=== PATIENT | male | born 1960 | race Caucasian/White ===

== ENCOUNTER 2017-02-02 11:14 | Emergency (ER) | payer MEDICAID ==
[~2017-02-02] VITALS: Ht 175.3 cm; Wt 114.1 kg
[~2017-02-02 11:14] MED LIST: APIX5TAB PO; INSU100I18 SQ-INSULIN; INSU100I28 SQ-INSULIN
[2017-02-02 11:27] VITALS: BP 135/87
[2017-02-02] MEDS ORDERED: ALBUTEROL/IPRATROPIUM 2.5MG/0.5MG, 3 ML ONE (11:58)
[2017-02-02] MEDS ORDERED: ALBUTEROL SULFATE 2.5 MG/3 ML NPPB ONE (12:00)
== END 2017-02-02 12:32 | disposition home or self-care (01) ==
LOC: ED 12:26
DX: J20.9 Acute bronchitis, unspecified (principal)
CPT/HCPCS: 71020; 93005; 94640; 99284; J7613

== ENCOUNTER 2018-01-31 17:20 | Inpatient (IN) | payer MEDICAID, OTHER ==
[~2018-01-31] VITALS: Ht 175.3 cm; Wt 122.5 kg
[2018-01-31 18:25] LABS: MEAN CORPUSCULAR HEMOGLOBIN 27.5 pg (27.5-34.5); MEAN CORPUSCULAR HGB CONC 33.1 g/dL (33.2-36.2); MEAN CORPUSCULAR VOLUME 83.1 fL (81-97); MEAN PLATELET VOLUME 8.6 fL (7.4-10.4); PLATELET COUNT 325 x10^3/uL (130-400); RED BLOOD COUNT 4.46 x10^6/uL (4.38-5.82)
[2018-01-31 18:30] LABS: MD YES
[2018-01-31] MEDS ORDERED: SODIUM CHLORIDE 0.9% 1,000ML IVBOLUS ONE (18:30)
[2018-01-31] MEDS ORDERED: ONDANSETRON 2MG/ML, 2ML IVPush ONE (18:30)
[2018-01-31] MEDS ORDERED: ONDANSETRON 2MG/ML, 2ML ONE (18:32)
[2018-01-31 18:38] LABS: ALANINE AMINOTRANSFERASE 60 U/L (12-78); ALBUMIN 2.6 g/dL (3.4-5.0); ANION GAP 20 mmol/L (5-15); CALCIUM 8.2 mg/dL (8.5-10.1); CHLORIDE 95 mmol/L (98-107); CREATININE 9.61 mg/dL (0.7-1.3)
[2018-01-31 18:42] LABS: ALKALINE PHOSPHATASE 104 U/L (45-117); BILIRUBIN,TOTAL 0.5 mg/dL (0.2-1.0); TOTAL PROTEIN 7.4 g/dL (6.4-8.2); TROPONIN I < 0.015 ng/mL (0.000-0.045)
[2018-01-31 18:55] LABS: BASOS#(MANUAL) 0.19 x10^3/uL (0-0.1); BASOS% (MANUAL) 1 % (0-1); LYMPH#(MANUAL) 2.09 x10^3/uL (1-3.4); LYMPHS% (MANUAL) 11 % (22-44); MONOS#(MANUAL) 1.33 x10^3/uL (0.3-2.7); MONOS% (MANUAL) 7 % (2-9); SEG#(MANUAL) 15.39 x10^3/uL (1.8-6.8); SEGS% (MANUAL) 81 % (42-75)
[2018-01-31 18:57] LABS: <PLATELET ESTIMATE> ADEQUATE; <PLT MORPHOLOGY> NORMAL PLT MORPH; ANISOCYTOSIS 1+; ROULEAUX 1+
[2018-01-31] MEDS ORDERED: LISI2.5T PO (19:49)
[2018-01-31] MEDS ORDERED: ATOR10TA9 PO ×2 (19:51→19:53)
[2018-01-31] MEDS ORDERED: METF500T17 PO ×3 (19:51→19:53)
[2018-01-31] MEDS ORDERED: ASPI-515 PO (19:53)
[2018-01-31] MEDS ORDERED: LISI-170 PO (19:53)
[2018-01-31] MEDS ORDERED: hydrALAzine 20 MG/ML, 1ML IVPush PRN (20:00)
[2018-01-31] MEDS ORDERED: morphine SULFATE 10 MG/ML, 1ML IVPush PRN (20:00)
[2018-01-31] MEDS ORDERED: BISACODYL 10 MG SUPP PR PRN (20:00)
[2018-01-31] MEDS ORDERED: ACETAMINOPHEN 325 MG TABLET PO PRN (20:00)
[2018-01-31] MEDS ORDERED: PROMETHAZINE 25 MG/ML, 1ML IM PRN (20:00)
[2018-01-31] MEDS ORDERED: LABETALOL 5MG/ML, 20ML IVPush PRN (20:00)
[2018-01-31] MEDS ORDERED: DOCUSATE 100 MG CAPSULE PO PRN (20:00)
[2018-01-31] MEDS ORDERED: ONDANSETRON ODT 4 MG PO PRN (20:00)
[2018-01-31] MEDS ORDERED: ONDANSETRON 2MG/ML, 2ML IVPush PRN (20:00)
[2018-01-31] MEDS ORDERED: OXYcodone IR 5MG TABLET PO PRN (20:00)
[2018-01-31] MEDS ORDERED: POLYETHYLENE GLYCOL 17 GM PACKET PO PRN (20:00)
[2018-01-31 20:22] LABS: MICROSCOPIC INDICATED
[2018-01-31 20:30] LABS: CULTURE INDICATED? NO
[2018-01-31 20:48] LABS: FREE T4 (FREE THYROXINE) 1.33 ng/dL (0.76-1.46); THYROID STIMULATING HORMONE 0.521 mIU/L (0.358-3.740)
[2018-01-31 20:50] LABS: HEMOGLOBIN A1C 6.9 % (4.2-6.3)
[2018-01-31] MEDS: ATORVASTATIN 10 MG TABLET PO SCH (21:06)
[2018-01-31] MEDS: SODIUM CHLORIDE 0.9% 1,000 ML IV SCH (21:07)
[2018-01-31] MEDS: HEPARIN 5,000 UNITS/ML, 1ML SQ SCH (21:07)
[2018-01-31] MEDS: INSULIN LISPRO 100 UNITS/ML, PEN SQ-INSULIN SCH (21:33)
[2018-01-31 21:38] VITALS: BP 93/58
[2018-02-01] VITALS (9 sets, daily range): BP systolic 95–123; BP diastolic 47–78
[2018-02-01] MEDS: HEPARIN 5,000 UNITS/ML, 1ML SQ SCH ×3 (04:14→20:27)
[2018-02-01] MEDS: SODIUM CHLORIDE 0.9% 1,000 ML IV SCH (04:14)
[2018-02-01 04:42] LABS: CHLORIDE,URINE RANDOM 14 mmol/L; POTASSIUM,URINE RANDOM 18 mmol/L; SODIUM,URINE RANDOM 46 mmol/L
[2018-02-01 05:27] LABS: CHLORIDE 99 mmol/L (98-107)
[2018-02-01 05:33] LABS: ALANINE AMINOTRANSFERASE 53 U/L (12-78); ALBUMIN 2.3 g/dL (3.4-5.0); ALKALINE PHOSPHATASE 95 U/L (45-117); ANION GAP 19 mmol/L (5-15); BASOPHILS # (AUTO) 0.17 x10^3/uL (0-0.1); BASOPHILS % (AUTO) 1 % (0-1); BILIRUBIN,TOTAL 0.4 mg/dL (0.2-1.0); CALCIUM 8.5 mg/dL (8.5-10.1); CHOL/HDL RATIO 4.1; CHOLESTEROL, TOTAL 91 mg/dL (140-239); CREATININE 7.93 mg/dL (0.7-1.3); EOSINOPHILS # (AUTO) 0.02 x10^3/uL (0-0.4); EOSINOPHILS % (AUTO) 0 % (1-7); HDL CHOL % 24 % (26-37); HDL CHOLESTEROL (DIRECT) 22 mg/dL (40-60); LDL CHOLESTEROL,CALCULATED 45 mg/dL (54-169); LYMPHOCYTES # (AUTO) 1.41 x10^3/uL (1-3.4); LYMPHOCYTES % (AUTO) 10 % (22-44); MD NO; MEAN CORPUSCULAR HEMOGLOBIN 27.3 pg (27.5-34.5); MEAN CORPUSCULAR HGB CONC 33.3 g/dL (33.2-36.2); MEAN CORPUSCULAR VOLUME 82.1 fL (81-97); MEAN PLATELET VOLUME 8.9 fL (7.4-10.4); MONOCYTES % (AUTO) 8 % (2-9); NEUTROPHILS # (AUTO) 11.78 x10^3/uL (1.8-6.8); NEUTROPHILS % (AUTO) 81 % (42-75); PLATELET COUNT 263 x10^3/uL (130-400); RED BLOOD COUNT 4.14 x10^6/uL (4.38-5.82); RED CELL DISTRIBUTION WIDTH 14.6 % (9.4-14.8); TOTAL PROTEIN 6.7 g/dL (6.4-8.2); TRIGLYCERIDES 122 mg/dL (50-200); VLDL CHOLESTEROL 24 mg/dL (0-25)
[2018-02-01] MEDS: INSULIN LISPRO 100 UNITS/ML, PEN SQ-INSULIN SCH ×4 (07:53→20:57)
[2018-02-01] MEDS: ASPIRIN 81 MG TABLET EC PO SCH (07:53)
[2018-02-01] MEDS ORDERED: D5%-0.45% NACL 1,000 ML IV SCH (08:00)
[2018-02-01] MEDS: D5 IV SCH ×2 (14:35→21:18)
[2018-02-01] MEDS: SODIUM BICARB 8.4% IV SCH ×2 (14:35→21:18)
[2018-02-01] MEDS: NACL IV SCH ×2 (14:35→21:18)
[2018-02-01] MEDS: ATORVASTATIN 10 MG TABLET PO SCH (20:27)
[2018-02-02 01:30] VITALS: BP 124/67
[2018-02-02 01:32] VITALS: BP_SYST 119; BP_SYST 132; BP_DIAS 74; BP_DIAS 76
[2018-02-02] MEDS: HEPARIN 5,000 UNITS/ML, 1ML SQ SCH ×3 (04:39→20:06)
[2018-02-02] MEDS: SODIUM BICARB 8.4% IV SCH ×3 (04:39→23:02)
[2018-02-02] MEDS: NACL IV SCH ×3 (04:39→23:02)
[2018-02-02] MEDS: D5 IV SCH ×3 (04:39→23:02)
[2018-02-02 05:25] LABS: BASOPHILS # (AUTO) 0.03 x10^3/uL (0-0.1); BASOPHILS % (AUTO) 0 % (0-1); EOSINOPHILS # (AUTO) 0.07 x10^3/uL (0-0.4); EOSINOPHILS % (AUTO) 1 % (1-7); LYMPHOCYTES # (AUTO) 1.31 x10^3/uL (1-3.4); LYMPHOCYTES % (AUTO) 12 % (22-44); MD NO; MEAN CORPUSCULAR HEMOGLOBIN 27.2 pg (27.5-34.5); MEAN CORPUSCULAR HGB CONC 32.9 g/dL (33.2-36.2); MEAN CORPUSCULAR VOLUME 82.8 fL (81-97); MEAN PLATELET VOLUME 8.7 fL (7.4-10.4); MONOCYTES # (AUTO) 1.01 x10^3/uL (0.2-0.8); MONOCYTES % (AUTO) 10 % (2-9); NEUTROPHILS # (AUTO) 8.12 x10^3/uL (1.8-6.8); NEUTROPHILS % (AUTO) 77 % (42-75); PLATELET COUNT 305 x10^3/uL (130-400); RED BLOOD COUNT 4.28 x10^6/uL (4.38-5.82); RED CELL DISTRIBUTION WIDTH 14.4 % (9.4-14.8)
[2018-02-02 05:32] LABS: CALCIUM 8.4 mg/dL (8.5-10.1); CHLORIDE 106 mmol/L (98-107)
[2018-02-02 05:35] LABS: ANION GAP 10 mmol/L (5-15); CREATINE KINASE, TOTAL 451 U/L (39-308); CREATININE 2.16 mg/dL (0.7-1.3)
[2018-02-02 07:07] VITALS: BP 123/84
[2018-02-02] MEDS: INSULIN LISPRO 100 UNITS/ML, PEN SQ-INSULIN SCH ×4 (07:30→20:06)
[2018-02-02] MEDS: ASPIRIN 81 MG TABLET EC PO SCH (07:53)
[2018-02-02] MEDS ORDERED: SODIUM BICARB 8.4% IV SCH (08:00)
[2018-02-02] MEDS ORDERED: NACL IV SCH (08:00)
[2018-02-02] MEDS ORDERED: D5 IV SCH (08:00)
[2018-02-02 12:17] VITALS: BP 130/77
[2018-02-02 19:47] VITALS: BP 149/90
[2018-02-02] MEDS: ATORVASTATIN 10 MG TABLET PO SCH (20:06)
[2018-02-03 01:51] VITALS: BP 137/92
[2018-02-03] MEDS: HEPARIN 5,000 UNITS/ML, 1ML SQ SCH ×2 (04:10→12:00)
[2018-02-03 05:25] LABS: BASOPHILS # (AUTO) 0.04 x10^3/uL (0-0.1); BASOPHILS % (AUTO) 0 % (0-1); EOSINOPHILS % (AUTO) 1 % (1-7); LYMPHOCYTES # (AUTO) 1.83 x10^3/uL (1-3.4); LYMPHOCYTES % (AUTO) 18 % (22-44); MD NO; MEAN CORPUSCULAR HEMOGLOBIN 27.3 pg (27.5-34.5); MEAN CORPUSCULAR HGB CONC 32.9 g/dL (33.2-36.2); MEAN CORPUSCULAR VOLUME 82.9 fL (81-97); MEAN PLATELET VOLUME 8.4 fL (7.4-10.4); MONOCYTES # (AUTO) 1.11 x10^3/uL (0.2-0.8); MONOCYTES % (AUTO) 11 % (2-9); NEUTROPHILS # (AUTO) 7.02 x10^3/uL (1.8-6.8); NEUTROPHILS % (AUTO) 70 % (42-75); PLATELET COUNT 309 x10^3/uL (130-400); RED BLOOD COUNT 4.13 x10^6/uL (4.38-5.82); RED CELL DISTRIBUTION WIDTH 14.6 % (9.4-14.8)
[2018-02-03 05:43] LABS: ANION GAP 7 mmol/L (5-15); CALCIUM 8.1 mg/dL (8.5-10.1); CHLORIDE 105 mmol/L (98-107)
[2018-02-03 05:44] LABS: CREATININE 0.95 mg/dL (0.7-1.3)
[2018-02-03] MEDS: NACL IV SCH ×2 (05:49→13:10)
[2018-02-03] MEDS: SODIUM BICARB 8.4% IV SCH ×2 (05:49→13:10)
[2018-02-03] MEDS: D5 IV SCH ×2 (05:49→13:10)
[2018-02-03 06:35] VITALS: BP 153/87
[2018-02-03] MEDS: INSULIN LISPRO 100 UNITS/ML, PEN SQ-INSULIN SCH ×2 (08:11→11:41)
[2018-02-03] MEDS: ASPIRIN 81 MG TABLET EC PO SCH (09:07)
[2018-02-03 12:25] VITALS: BP 136/89
== END 2018-02-03 14:10 | disposition home or self-care (01) | DRG 438 ==
LOC: ED 19:47 → EDIP 19:48 → 4EST 20:54
PROVIDERS: ADMIT Internal Medicine; ATTEND Internal Medicine
PROC: 0T9B70Z Drainage of Bladder with Drainage Device, Via Natural or Artificial Opening (ICD-10-PCS; principal; 2018-01-31)
DX: K85.90 Acute pancreatitis without necrosis or infection, unspecified (principal); N17.0 Acute kidney failure with tubular necrosis; E44.0 Moderate protein-calorie malnutrition; E87.2 Acidosis; I11.9 Hypertensive heart disease without heart failure; L40.9 Psoriasis, unspecified; E11.9 Type 2 diabetes mellitus without complications; E78.5 Hyperlipidemia, unspecified; E86.0 Dehydration; Z87.828 Personal history of other (healed) physical injury and trauma; Z86.718 Personal history of other venous thrombosis and embolism; Z86.14 Personal history of Methicillin resistant Staphylococcus aureus infection; Z79.899 Other long term (current) drug therapy; Z79.82 Long term (current) use of aspirin; Z68.39 Body mass index [BMI] 39.0-39.9, adult
CPT/HCPCS: 36415; 70450; 71045; 76770; 80048; 80053; 80061; 81001; 82436; 82550; 82553; 82962; 83036; 83605; 83690; 83735; 84133; 84300; 84439; 84443; 84484; 85025; 87040; 90656; 93005; 96361; 96374; 99285; G0378; J1644; J2405; J1815; J7030

== ENCOUNTER 2018-05-09 14:17 | Inpatient (IN) | payer MEDICAID ==
[~2018-05-09] VITALS: Ht 175.3 cm; Wt 123.8 kg
[~2018-05-09 14:17] MED LIST changes: +ASPI-515 PO; +ATOR10TA9 PO; +LISI-170 PO; +LISI2.5T PO; +METF500T17 PO
[2018-05-09] MEDS ORDERED: ALBUTEROL/IPRATROPIUM 2.5MG/0.5MG, 3 ML ONE (14:28)
[2018-05-09] MEDS ORDERED: methylPREDNISolone SOD SUCC 125 MG/2 ML IVP ONE (14:30)
[2018-05-09] MEDS ORDERED: SODIUM CHLORIDE FLUSH 10ML SYR IVF ONE (14:30)
[2018-05-09] MEDS: ALBUTEROL/IPRATROPIUM 2.5MG/0.5MG, 3 ML NPPB SCH (14:32)
--- NOTE | 2018-05-09 14:35 | NUR ---
pt bib remsa for shortness of breath x 2 days. pt received albuterol and 2 duoneb treatments in route. pt with hx: dm, htn, high cholesterol, and kidney problems. blood glucose per remsa was 130. pt placed in traume 3 and rt at bedside. pt placed on bipap. pt placed on bp, cardiac, and cont. pulse oximeter. assessment completed. ekg done and presented to md. 2 ivs started and unable to draw blood. lab at bedside. chest x-ray at bedside. daughter at bedside.
[2018-05-09] MEDS ORDERED: methylPREDNISolone SOD SUCC 125 MG/2 ML ONE (14:39)
--- NOTE | 2018-05-09 14:49 | NUR ---
LAB INTO DRAW ABG X 1.
--- NOTE | 2018-05-09 14:50 | NUR ---
Felicita page in [facility] - 05/09/18 at 1451 by KAMILA BIPAP 15/5-60%
--- NOTE | 2018-05-09 14:51 | NUR ---
BIPAP 15/8-60%
[2018-05-09] MEDS ORDERED: LISI-167 PO (14:57)
--- NOTE | 2018-05-09 14:59 | NUR ---
PT TAKEN OFF OF BIPAP AND CHANGED TO HIGH FLOW NASAL CANNULA.
[2018-05-09] MEDS ORDERED: ALBUTEROL SULFATE 2.5 MG/3 ML ONE (15:00)
[2018-05-09 15:08] LABS: BASOPHILS # (AUTO) 0.01 x10^3/uL (0-0.1); BASOPHILS % (AUTO) 0 % (0-1); EOSINOPHILS % (AUTO) 0 % (1-7); LYMPHOCYTES # (AUTO) 1.05 x10^3/uL (1-3.4); LYMPHOCYTES % (AUTO) 13 % (22-44); MD NO; MEAN CORPUSCULAR HEMOGLOBIN 24.9 pg (27.5-34.5); MEAN CORPUSCULAR HGB CONC 31.3 g/dL (33.2-36.2); MEAN CORPUSCULAR VOLUME 79.7 fL (81-97); MEAN PLATELET VOLUME 8.1 fL (7.4-10.4); MONOCYTES # (AUTO) 0.49 x10^3/uL (0.2-0.8); MONOCYTES % (AUTO) 6 % (2-9); NEUTROPHILS # (AUTO) 6.34 x10^3/uL (1.8-6.8); NEUTROPHILS % (AUTO) 80 % (42-75); PLATELET COUNT 291 x10^3/uL (130-400); RED BLOOD COUNT 4.14 x10^6/uL (4.38-5.82); RED CELL DISTRIBUTION WIDTH 16.4 % (9.4-14.8)
[2018-05-09 15:13] LABS: ALANINE AMINOTRANSFERASE 71 U/L (12-78); ALBUMIN 3.2 g/dL (3.4-5.0); CALCIUM 8.5 mg/dL (8.5-10.1); CHLORIDE 100 mmol/L (98-107); CREATININE 0.92 mg/dL (0.7-1.3)
[2018-05-09 15:17] LABS: ALKALINE PHOSPHATASE 125 U/L (45-117); BILIRUBIN,TOTAL 0.6 mg/dL (0.2-1.0); TOTAL PROTEIN 7.3 g/dL (6.4-8.2)
[2018-05-09] MEDS ORDERED: CEFTRIAXONE PMX 1GM/50ML 50 ML ONE (15:17)
--- NOTE | 2018-05-09 15:19 | NUR ---
BLOOD CULTURES DRAWN X 2 AND ANTIBIOTICS HUNG PER MD ORDER
[2018-05-09 15:22] LABS: ANION GAP 10 mmol/L (5-15)
[2018-05-09 15:23] LABS: TROPONIN I 0.295 ng/mL (0.000-0.045)
--- NOTE | 2018-05-09 15:24 | NUR ---
critical trop 0.295 called by lab. aware
--- NOTE | 2018-05-09 15:26 | NUR ---
TEMP 103 ORALLY. AWARE.
[2018-05-09] MEDS ORDERED: ACETAMINOPHEN 325 MG TABLET PO STA (15:28)
[2018-05-09] MEDS ORDERED: AZITHROMYCIN 500 MG in SODIUM CHLORIDE 0.9% 250 ML IV ONE (15:30)
[2018-05-09] MEDS ORDERED: ACETAMINOPHEN 500 MG TABLET PO ONE (15:30)
[2018-05-09] MEDS ORDERED: ACETAMINOPHEN 650 MG SUPP ONE (15:30)
[2018-05-09] MEDS ORDERED: CEFTRIAXONE PMX 1GM/50ML 50 ML IV ONE (15:30)
[2018-05-09] MEDS ORDERED: ACETAMINOPHEN 325 MG SUPP PR STA (15:31)
[2018-05-09 15:34] LABS: INTERNATIONAL NORMALIZED RATIO 1.1 (0.93-1.1); PROTHROMBIN TIME 11.6 Seconds (9.6-11.5)
--- NOTE | 2018-05-09 15:43 | NUR ---
TYLENOL RECTAL SUPPOSITORIES GIVEN PER MD ORDER.
[2018-05-09] MEDS ORDERED: OMNIPAQUE 350 MG/ML, 100ML BOTTLE ONE (16:00)
--- NOTE | 2018-05-09 16:36 | NUR ---
PT BACK FROM CT. PT MORE ALERT AND TALKING. A&OX4. PT PLACED BACK ON HIGH FLOW OXYGEN.
--- NOTE | 2018-05-09 16:44 | NUR ---
FLU SWABS SENT TO LAB.
[2018-05-09 17:04] LABS: RAPID INFLUENZA A Negative (Negative); RAPID INFLUENZA B Negative (Negative)
[2018-05-09] MEDS ORDERED: ACETAMINOPHEN 325 MG TABLET PO PRN (17:30)
[2018-05-09] MEDS ORDERED: POLYETHYLENE GLYCOL 17 GM PACKET PO PRN (17:30)
[2018-05-09] MEDS ORDERED: hydrALAzine 20 MG/ML, 1ML IVPush PRN (17:30)
[2018-05-09] MEDS: methylPREDNISolone SOD SUCC 125 MG/2 ML IVPush SCH (17:30)
[2018-05-09] MEDS ORDERED: BISACODYL 10 MG SUPP PR PRN (17:30)
[2018-05-09] MEDS ORDERED: ONDANSETRON 2MG/ML, 2ML IVPush PRN (17:30)
--- NOTE | 2018-05-09 17:30 | NUR ---
dr. wild at bedside.
[2018-05-09] MEDS: SODIUM CHLORIDE 0.9% 1,000 ML IV SCH (17:57)
[2018-05-09] MEDS ORDERED: ENOXAPARIN 40 MG/0.4 ML ONE (17:59)
[2018-05-09] MEDS: ENOXAPARIN 40 MG/0.4 ML SQ SCH (18:00)
--- NOTE | 2018-05-09 18:10 | NUR ---
us at bedside.
--- NOTE | 2018-05-09 18:16 | NUR ---
awaiting ccu bed.
--- NOTE | 2018-05-09 18:30 | NUR ---
lab into draw 2nd troponin and 3rd abg
[2018-05-09] MEDS: DOXYCYCLINE 100 MG in DEXTROSE 5% 250 ML IV SCH (18:33)
--- NOTE | 2018-05-09 18:35 | NUR ---
daughter almaz rolly [phone]
--- NOTE | 2018-05-09 18:45 | NUR ---
pt resting in bed at this time.
--- NOTE | 2018-05-09 18:59 | NUR ---
attempted to call report to [facility] and unavailable.
--- NOTE | 2018-05-09 19:21 | NUR ---
report given to therese jarvis.
[2018-05-09] MEDS: BUDESONIDE 0.5 MG/2 ML INHA INH SCH (21:00)
[2018-05-09] MEDS: FAMOTIDINE 20 MG/2 ML IVPush SCH (21:12)
[2018-05-10] MEDS: methylPREDNISolone SOD SUCC 125 MG/2 ML IVPush SCH ×4 (00:23→20:25)
[2018-05-10 00:52] VITALS: BP 128/84
[2018-05-10 01:40] LABS: TROPONIN I 0.134 ng/mL (0.000-0.045)
[2018-05-10 04:52] LABS: BASOPHILS # (AUTO) 0.01 x10^3/uL (0-0.1); BASOPHILS % (AUTO) 0 % (0-1); EOSINOPHILS % (AUTO) 0 % (1-7); LYMPHOCYTES # (AUTO) 0.57 x10^3/uL (1-3.4); LYMPHOCYTES % (AUTO) 10 % (22-44); MD NO; MEAN CORPUSCULAR HEMOGLOBIN 25.9 pg (27.5-34.5); MEAN CORPUSCULAR HGB CONC 32.4 g/dL (33.2-36.2); MONOCYTES # (AUTO) 0.15 x10^3/uL (0.2-0.8); MONOCYTES % (AUTO) 3 % (2-9); NEUTROPHILS # (AUTO) 5.13 x10^3/uL (1.8-6.8); NEUTROPHILS % (AUTO) 87 % (42-75); PLATELET COUNT 232 x10^3/uL (130-400); RED BLOOD COUNT 4.28 x10^6/uL (4.38-5.82); RED CELL DISTRIBUTION WIDTH 16.6 % (9.4-14.8)
[2018-05-10 05:02] LABS: ANION GAP 4 mmol/L (5-15); CHLORIDE 108 mmol/L (98-107)
[2018-05-10 05:06] LABS: ALANINE AMINOTRANSFERASE 66 U/L (12-78); ALKALINE PHOSPHATASE 108 U/L (45-117); BILIRUBIN,TOTAL 0.4 mg/dL (0.2-1.0); CREATININE 0.63 mg/dL (0.7-1.3); TOTAL PROTEIN 7.4 g/dL (6.4-8.2)
[2018-05-10] MEDS: SODIUM CHLORIDE 0.9% 1,000 ML IV SCH (05:38)
[2018-05-10] MEDS: DOXYCYCLINE 100 MG in DEXTROSE 5% 250 ML IV SCH ×2 (06:18→17:26)
[2018-05-10] MEDS: INSULIN LISPRO 100 UNITS/ML, PEN SQ-INSULIN SCH ×4 (07:00→20:55)
[2018-05-10] MEDS: BUDESONIDE 0.5 MG/2 ML INHA INH SCH ×2 (07:20→19:15)
[2018-05-10] MEDS ORDERED: LISINOPRIL 20 MG TABLET PO SCH (09:00)
[2018-05-10] MEDS: ASPIRIN 81 MG TABLET EC PO SCH (09:24)
[2018-05-10] MEDS: FAMOTIDINE 20 MG/2 ML IVPush SCH ×2 (09:28→20:24)
[2018-05-10] MEDS ORDERED: FUROSEMIDE 20 MG/2 ML IV ONE (12:00)
[2018-05-10] MEDS: CEFTRIAXONE PMX 2GM/50ML 50 ML IV SCH (12:07)
[2018-05-10] MEDS: LISINOPRIL 5 MG TABLET PO SCH (12:30)
[2018-05-10] MEDS ORDERED: LISINOPRIL 5 MG TABLET PO SCH (12:30)
[2018-05-10] MEDS: ENOXAPARIN 40 MG/0.4 ML SQ SCH (17:27)
[2018-05-10] MEDS: ATORVASTATIN 20 MG TABLET PO SCH (20:24)
[2018-05-11] MEDS: methylPREDNISolone SOD SUCC 125 MG/2 ML IVPush SCH ×3 (04:35→20:38)
[2018-05-11] MEDS: DOXYCYCLINE 100 MG in DEXTROSE 5% 250 ML IV SCH ×2 (04:56→18:21)
[2018-05-11] MEDS: BUDESONIDE 0.5 MG/2 ML INHA INH SCH ×2 (07:40→20:47)
[2018-05-11] MEDS: INSULIN LISPRO 100 UNITS/ML, PEN SQ-INSULIN SCH ×4 (08:07→21:11)
[2018-05-11] MEDS: ASPIRIN 81 MG TABLET EC PO SCH (08:07)
[2018-05-11] MEDS: FAMOTIDINE 20 MG/2 ML IVPush SCH (08:08)
[2018-05-11] MEDS: LISINOPRIL 5 MG TABLET PO SCH (08:08)
[2018-05-11] MEDS: CEFTRIAXONE PMX 2GM/50ML 50 ML IV SCH (12:53)
[2018-05-11] MEDS: ENOXAPARIN 40 MG/0.4 ML SQ SCH (18:01)
[2018-05-11 18:32] VITALS: BP 121/72
[2018-05-11] MEDS: FAMOTIDINE 20 MG TABLET PO SCH (20:38)
[2018-05-11] MEDS: ATORVASTATIN 20 MG TABLET PO SCH (20:38)
[2018-05-12 02:24] VITALS: BP 124/80
[2018-05-12] MEDS: methylPREDNISolone SOD SUCC 125 MG/2 ML IVPush SCH ×3 (04:33→20:48)
[2018-05-12] MEDS: DOXYCYCLINE 100 MG in DEXTROSE 5% 250 ML IV SCH ×2 (05:22→16:59)
[2018-05-12 07:15] VITALS: BP 126/87
[2018-05-12] MEDS: LISINOPRIL 5 MG TABLET PO SCH (08:54)
[2018-05-12] MEDS: INSULIN LISPRO 100 UNITS/ML, PEN SQ-INSULIN SCH ×4 (08:54→20:55)
[2018-05-12] MEDS: FAMOTIDINE 20 MG TABLET PO SCH ×2 (08:54→20:49)
[2018-05-12] MEDS: ASPIRIN 81 MG TABLET EC PO SCH (08:54)
[2018-05-12] MEDS: BUDESONIDE 0.5 MG/2 ML INHA INH SCH (09:00)
[2018-05-12] MEDS: CEFTRIAXONE PMX 2GM/50ML 50 ML IV SCH (11:52)
[2018-05-12 12:20] VITALS: BP 138/80
[2018-05-12] MEDS ORDERED: FUROSEMIDE 40 MG/4 ML IV ONE (17:00)
[2018-05-12] MEDS: ENOXAPARIN 40 MG/0.4 ML SQ SCH (17:00)
[2018-05-12 18:42] VITALS: BP 133/80
[2018-05-12] MEDS: ATORVASTATIN 20 MG TABLET PO SCH (20:49)
[2018-05-13 01:53] VITALS: BP 132/69
[2018-05-13] MEDS: methylPREDNISolone SOD SUCC 125 MG/2 ML IVPush SCH ×3 (04:45→21:41)
[2018-05-13] MEDS: DOXYCYCLINE 100 MG in DEXTROSE 5% 250 ML IV SCH ×2 (05:19→18:15)
[2018-05-13] MEDS: ASPIRIN 81 MG TABLET EC PO SCH (07:59)
[2018-05-13] MEDS: FAMOTIDINE 20 MG TABLET PO SCH ×2 (07:59→21:41)
[2018-05-13] MEDS: INSULIN LISPRO 100 UNITS/ML, PEN SQ-INSULIN SCH ×4 (07:59→21:48)
[2018-05-13] MEDS: CARVEDILOL 3.125 MG TABLET PO SCH ×2 (08:00→17:04)
[2018-05-13] MEDS: LISINOPRIL 5 MG TABLET PO SCH (08:00)
[2018-05-13 08:48] VITALS: BP 154/91
[2018-05-13] MEDS ORDERED: FUROSEMIDE 20 MG/2 ML IV SCH (09:00)
[2018-05-13 09:25] LABS: ANION GAP 6 mmol/L (5-15); CALCIUM 8.9 mg/dL (8.5-10.1); CHLORIDE 95 mmol/L (98-107)
[2018-05-13 09:27] LABS: MEAN CORPUSCULAR HEMOGLOBIN 24.9 pg (27.5-34.5); MEAN CORPUSCULAR HGB CONC 30.9 g/dL (33.2-36.2); MEAN CORPUSCULAR VOLUME 80.8 fL (81-97); MEAN PLATELET VOLUME 8.3 fL (7.4-10.4); PLATELET COUNT 336 x10^3/uL (130-400); RED BLOOD COUNT 4.91 x10^6/uL (4.38-5.82); RED CELL DISTRIBUTION WIDTH 16.4 % (9.4-14.8)
[2018-05-13 10:00] LABS: BASOPHILS # (AUTO) 0.01 x10^3/uL (0-0.1); BASOPHILS % (AUTO) 0 % (0-1); EOSINOPHILS % (AUTO) 0 % (1-7); LYMPHOCYTES # (AUTO) 0.75 x10^3/uL (1-3.4); LYMPHOCYTES % (AUTO) 7 % (22-44); MD SCAN; MONOCYTES # (AUTO) 0.12 x10^3/uL (0.2-0.8); MONOCYTES % (AUTO) 1 % (2-9); NEUTROPHILS # (AUTO) 9.55 x10^3/uL (1.8-6.8); NEUTROPHILS % (AUTO) 92 % (42-75)
[2018-05-13] MEDS: CEFTRIAXONE PMX 2GM/50ML 50 ML IV SCH (11:44)
[2018-05-13 14:52] VITALS: BP 152/97
[2018-05-13] MEDS: ENOXAPARIN 40 MG/0.4 ML SQ SCH (17:05)
[2018-05-13 19:35] VITALS: BP 148/84
[2018-05-13] MEDS: FUROSEMIDE 20 MG/2 ML IV SCH (21:00)
[2018-05-13] MEDS: ATORVASTATIN 20 MG TABLET PO SCH (21:41)
[2018-05-14 00:19] VITALS: BP 142/81
[2018-05-14] MEDS: methylPREDNISolone SOD SUCC 125 MG/2 ML IVPush SCH ×2 (06:25→12:10)
[2018-05-14] MEDS: DOXYCYCLINE 100 MG in DEXTROSE 5% 250 ML IV SCH (06:25)
[2018-05-14] MEDS: CARVEDILOL 3.125 MG TABLET PO SCH (06:28)
[2018-05-14 08:15] VITALS: BP 159/101
[2018-05-14] MEDS: FUROSEMIDE 20 MG/2 ML IV SCH (08:19)
[2018-05-14] MEDS: ASPIRIN 81 MG TABLET EC PO SCH (08:19)
[2018-05-14] MEDS: INSULIN LISPRO 100 UNITS/ML, PEN SQ-INSULIN SCH ×3 (08:19→16:00)
[2018-05-14] MEDS: LISINOPRIL 5 MG TABLET PO SCH (08:20)
[2018-05-14] MEDS: FAMOTIDINE 20 MG TABLET PO SCH (08:20)
[2018-05-14] MEDS: CEFTRIAXONE PMX 2GM/50ML 50 ML IV SCH (12:10)
[2018-05-14 12:44] VITALS: BP 115/72
[2018-05-14] MEDS ORDERED: PRED5TAB PO (13:24)
[2018-05-14] MEDS ORDERED: ALBU1.25 NEB (13:24)
[2018-05-14] MEDS ORDERED: FURO-92 PO (13:24)
[2018-05-14] MEDS ORDERED: LISI-167 PO (13:24)
[2018-05-14] MEDS ORDERED: DOXY100T10 PO (13:24)
[2018-05-14] MEDS ORDERED: ALBU18HF INH (13:24)
[2018-05-14] MEDS ORDERED: CEFD300C37 PO (13:24)
[2018-05-14] MEDS ORDERED: CARV3.1212 PO (13:24)
[2018-05-14] MEDS ORDERED: POTA20TA91 PO (13:24)
[2018-05-14 14:04] VITALS: BP 118/88
[2018-05-14 16:04] VITALS: BP 130/86
== END 2018-05-14 17:00 | disposition home or self-care (01) | DRG 871 ==
LOC: ED 15:13 → EDIP 15:42 → CCU 19:24 → 4NOR 05-11 15:38
PROVIDERS: ADMIT Hospitalist; ATTEND Hospitalist
PROC: 5A09357 Assistance with Respiratory Ventilation, Less than 24 Consecutive Hours, Continuous Positive Airway Pressure (ICD-10-PCS; principal; 2018-05-09)
PROC: 5A09357 Assistance with Respiratory Ventilation, Less than 24 Consecutive Hours, Continuous Positive Airway Pressure (ICD-10-PCS; 2018-05-10)
DX: A41.9 Sepsis, unspecified organism (principal); G93.41 Metabolic encephalopathy; I50.41 Acute combined systolic (congestive) and diastolic (congestive) heart failure; J18.9 Pneumonia, unspecified organism; J96.01 Acute respiratory failure with hypoxia; N25.81 Secondary hyperparathyroidism of renal origin; Z68.41 Body mass index [BMI] 40.0-44.9, adult; D50.9 Iron deficiency anemia, unspecified; E11.9 Type 2 diabetes mellitus without complications; E66.9 Obesity, unspecified; E78.5 Hyperlipidemia, unspecified; F17.200 Nicotine dependence, unspecified, uncomplicated; G47.33 Obstructive sleep apnea (adult) (pediatric); I11.0 Hypertensive heart disease with heart failure; I27.20 Pulmonary hypertension, unspecified; I35.8 Other nonrheumatic aortic valve disorders; I50.82 Biventricular heart failure; L40.9 Psoriasis, unspecified; Z79.2 Long term (current) use of antibiotics; Z86.14 Personal history of Methicillin resistant Staphylococcus aureus infection; Z86.718 Personal history of other venous thrombosis and embolism; Z79.82 Long term (current) use of aspirin; Z79.899 Other long term (current) drug therapy; Z79.84 Long term (current) use of oral hypoglycemic drugs
CPT/HCPCS: 36415; 36600; 84145; 87400; J3490; J7620; J7626; 71045; 71275; 80048; 80053; 82140; 82728; 82803; 82962; 83540; 83550; 83605; 83735; 83880; 84100; 84484; 85025; 85610; 87040; 87081; 93005; 93306; 93970; 94640; 94660; G0378; J0456; J0696; J1650; J1940; J7060; Q9967; J1815; J2930; J7030; J7050

== ENCOUNTER 2019-05-19 15:57 | Emergency (ER) | payer MEDICAID ==
[~2019-05-19] VITALS: Ht 182.9 cm; Wt 142.0 kg
[~2019-05-19 15:57] MED LIST changes: +ALBU1.25 NEB; +ALBU18HF INH; +CARV3.1212 PO; +CEFD300C37 PO; +DOXY100T23 PO; +FURO-92 PO; +LISI-167 PO; +POTA20TA91 PO; +PRED5TAB PO
--- NOTE | 2019-05-19 16:11 | NUR ---
1556: APPROX 59 YR OLD MALE ARRIVED VIA EMS WITH CHEST COMPRESSIONS IN PROGRESS. PER REPORT, EMS CALLED FOR "UNRESPONSIVENESS" BY FAMILY, UNKNOWN DOWN TIME. CODE WORKED BY EMS APPROX 20 MIN. RECEIVED 5 ROUNDS OF EPI, 2MG NARCAN,0.5 ATROPINE. PT ARRIVED WITH 7.[address] I/O IN RIGHT LEG. BS 124. HX OF HTN AND DIABETES. DR LYNN AT BEDSIDE. SEE CODE SHEET.
[2019-05-19] MEDS ORDERED: SODIUM BICARB 8.4%, 50ML SYRINGE ONE (16:20)
[2019-05-19] MEDS ORDERED: CODE BLUE RESPONSE XX ONE (16:20)
[2019-05-19] MEDS ORDERED: CALCIUM CHLORIDE 10%, 10ML SYR ONE (16:20)
[2019-05-19] MEDS ORDERED: EPINEPHRINE SYRINGE 0.1 MG/ML, 10ML ONE (16:20)
--- NOTE | 2019-05-19 16:28 | NUR ---
PTS DAUGHTER DAVE IN ED. DR LYNN NOTIFED DAUGHTER OF EXPIRATION. PER PTS DAUGHTER "I WENT TO WORK ABOUT 1030 AND HE WAS FINE. BROTHER FOUND HIM" APPROX 1500.
--- NOTE | 2019-05-19 16:43 | NUR ---
TELEPHONE CALL TO [employer], SPOKE TO TESHA REF #[id number]. STATED WE WILL RECEIVE A CALL WITHIN 15 MINUTES TO DETERMINE ELIGIBILITY.
--- NOTE | 2019-05-19 16:44 | NUR ---
DAUGHTER DAVE REPORT "COUGH X2 WEEKS, WOULD NOT GO TO BE SEEN FOR IT"
--- NOTE | 2019-05-19 16:48 | NUR ---
LILIAM HOLLOWAY AT BEDSIDE TO TALK WITH PTS DAUGHTER DAVE.
--- NOTE | 2019-05-19 16:53 | NUR ---
TELEPHONE CALL CONVERSATION W/ [employer], DECLINES CASE.
--- NOTE | 2019-05-19 16:53 | NUR ---
MEKA ACOSTA CELL # [phone]
--- NOTE | 2019-05-19 17:10 | NUR ---
PT RING, CELLPHONE AND CLOTHES RELEASED TO DAUGHTER, DAVE GARCIA. DAVE STATES "I HAVE HIS WALLET".
--- NOTE | 2019-05-19 17:25 | NUR ---
TELEPHONE CONVERSATION W/ [employer] FROM [employer]. STATES PT IS A POSSIBLE CANDIDATE AND WILL CONTACT FAMILY. STATES THEY WILL CALL BACK IN ABOUT 1 HOUR. REF# [id number].
--- NOTE | 2019-05-19 17:32 | NUR ---
FAMILY PROVIDED INFORMATION ON MORTUARIES. VERBALIZES UNDERSTANDING TO MAKE ARRANGEMENTS. PTS DAUGHTER AND BOYFRIEND LEFT W/ NEIGHBOR.
--- NOTE | 2019-05-19 17:40 | NUR ---
PIV, IO AND ET TUBE REMOVED.
--- NOTE | 2019-05-19 18:02 | NUR ---
TO [facility], AWAITING INFORMATION FROM FAMILY ON MORTUARY.
[2019-05-20] MEDS ORDERED: ADENOSINE 6 MG/2 ML ONE (08:00)
[2019-05-20] MEDS ORDERED: SODIUM BICARB 8.4%, 50ML SYRINGE ONE (08:00)
== END 2019-05-19 18:46 | disposition expired ==
LOC: EDBD 15:57 → MERGE 15:57 → ED 16:15
DX: I46.9 Cardiac arrest, cause unspecified (principal); I10 Essential (primary) hypertension; E11.9 Type 2 diabetes mellitus without complications; E78.5 Hyperlipidemia, unspecified
CPT/HCPCS: 92950; 99285; J0153